=== PATIENT | female | born 1980 | race American Indian/Alaskan Native ===

== ENCOUNTER 2017-11-29 14:29 | Emergency (ER) | payer MEDICAID ==
[2017-11-29 14:41] VITALS: BP 112/51
--- NOTE | 2017-11-29 17:08 | Emergency Department Report ---
ED Fall HPI - General Chief Complaint: Fall Stated Complaint: LEFT SHOULDER INJURY/FALL Time Seen by Provider: 11/29/17 17:05 Source: patient, family Mode of arrival: Ambulatory Limitations: No Limitations - History of Present Illness Initial Comments: Patient reports that she slipped and fall last night at home and she is having left shoulder pain at 10 out of 10 achy and report that it is very hard for her to move her left shoulder. She says she took [id number] pain medication but it's not helping. Pain is worse with movement and touch better rest then but is constant. Denies any numbness or tingling distally. Denies any bruising or swelling and or laceration to left shoulder. She said when she fell she fell on her left shoulder. She is here to be evaluated MD Complaint: fall -: Last night Fall From: standing When Fall Occurred: other (last night) Fall Witnessed: no Loss of Consciousness: none Prolonged Down Time?: yes Symptoms Prior to Fall: none Location - Extremities: Left: Shoulder (pain and difficulty moving left shoulder ) Severity: severe Severity scale (0 -10): 10 Quality: aching Context: tripped/slipped Associated Symptoms: denies: headache, neck pain, numbness, weakness, chest paint, shortness of breath, abdominal pain, hematuria, unable to walk, lightheaded, vertigo, confusion - Related Data Home Medications Medication Instructions Recorded Confirmed Last Taken Phentermine HCl 37.5 mg PO DAILY 10/09/13 10/09/13 Unknown Previous Rx's Medication Instructions Recorded Last Taken Type Famotidine [Pepcid] 40 mg PO DAILY #14 tablet 10/09/13 Unknown Rx hydrOXYzine HCL [Atarax] 25 mg PO Q6HR PRN #20 tablet 10/09/13 Unknown Rx predniSONE [Deltasone] 50 mg PO QDAY #5 tab 10/09/13 Unknown Rx Ibuprofen [Motrin] 600 mg PO Q8H PRN #15 tablet 11/29/17 Unknown Rx Allergies Allergy/AdvReac Type Severity Reaction Status Date / Time No Known Allergies Allergy Unverified 06/19/13 17:20 ED Review of Systems ROS: Stated complaint: LEFT SHOULDER INJURY/FALL Other details as noted in HPI Constitutional: denies: chills, fever Respiratory: denies: cough, shortness of breath, SOB with exertion, SOB at rest , wheezing Cardiovascular: denies: chest pain, palpitations, edema, syncope Gastrointestinal: denies: abdominal pain, nausea, vomiting, diarrhea Genitourinary: denies: urgency, dysuria, frequency, hematuria, discharge Musculoskeletal: joint swelling, arthralgia. denies: back pain, myalgia Skin: denies: rash, lesions Neurological: denies: headache, weakness, numbness, paresthesias, abnormal gait ED Past Medical Hx - Past Medical History Previous Medical History?: Yes Hx Psychiatric Treatment: Yes (depression) - Surgical History Past Surgical History?: Yes Additional Surgical History: c-sections x 3 - Family History Family history: hypertension - Social History Smoking Status: Current Every Day Smoker Substance Use Type: Marijuana, Prescribed - Medications Home Medications: Home Medications Medication Instructions Recorded Confirmed Last Taken Type Famotidine [Pepcid] 40 mg PO DAILY #14 tablet 10/09/13 Unknown Rx Phentermine HCl 37.5 mg PO DAILY 10/09/13 10/09/13 Unknown History hydrOXYzine HCL [Atarax] 25 mg PO Q6HR PRN #20 tablet 10/09/13 Unknown Rx predniSONE [Deltasone] 50 mg PO QDAY #5 tab 10/09/13 Unknown Rx Ibuprofen [Motrin] 600 mg PO Q8H PRN #15 tablet 11/29/17 Unknown Rx ED Physical Exam - General Limitations: No Limitations General appearance: alert, in no apparent distress - Head Head exam: Present: atraumatic, normocephalic, normal inspection, other (normal exam) - Eye Eye exam: Present: normal appearance, PERRL, EOMI Pupils: Present: normal accommodation - ENT ENT exam: Present: normal exam, normal orophraynx, mucous membranes moist - Neck Neck exam: Present: normal inspection, full ROM, other (no C-spine tenderness). Absent: tenderness, lymphadenopathy - Respiratory Respiratory exam: Present: normal lung sounds bilaterally. Absent: respiratory distress, chest wall tenderness - Cardiovascular Cardiovascular Exam: Present: regular rate, normal rhythm, normal heart sounds. Absent: systolic murmur, diastolic murmur - Extremities Exam Extremities exam: Present: normal inspection, tenderness (tenderness to palpate the left shoulder joint), normal capillary refill, joint swelling (left shoulder ), other (no clubbing, cyanosis or edema except mild swelling to shoulder joint. Patient without any laceration, crepitus or effusion to joints. She has limited range of motion to left shoulder otherwise all other extremities are normal. +2 pulses to all extremities and no neurovascular compromise). Absent: full ROM (limited range of motion to left shoulder), pedal edema, calf tenderness - Expanded Upper Extremity Exam Left General: Absent: laceration, abrasion Shoulder Exam: Present: tenderness (left shoulder joint), swelling (left shoulder), tenderness over AC joint. Absent: normal inspection, full ROM, abrasion, laceration, ecchymosis, deformity, crepidus, dislocation, erythema Upper Arm exam: Present: normal inspection, full ROM. Absent: tenderness, swelling, abrasion, laceration, ecchymosis, deformity, crepidus, dislocation, erythema Elbow exam: Present: normal inspection, full ROM. Absent: tenderness, swelling , abrasion, laceration, ecchymosis, deformity, crepidus, dislocation, erythema, effusion, pain w/ pronation/supination, tenderness over radial head Forearm Wrist exam: Present: normal inspection, full ROM. Absent: tenderness, swelling, abrasion, laceration, ecchymosis, deformity, crepidus, dislocation, erythema, tenderness over anatomical snuff box, pain with axial thumb loading Hand Wrist exam: Present: normal inspection, full ROM. Absent: tenderness, swelling, abrasion, laceration, ecchymosis, deformity, crepidus, dislocation, erythema, amputation, nail avulsion, subungual hematoma Neuro motor exam: Present: wrist extension intact, thumb opposition intact, thumb IP flexion intact, thumb adduction intact, fingers 2-5 abduction intact Neurosensory exam: Present: 2-point discrimination, radial nerve intact, ulnar nerve intact, median nerve intact Vascular: Present: normal capillary refill, radial pulse, brachial pulse, ulnar pulse. Absent: vascular compromise, Pallo, pulse deficit radial art, pulse deficit ulnar art, pulse deficit brachial art - Back Exam Back exam: Present: normal inspection, full ROM, other (ambulates without any difficulties). Absent: tenderness, CVA tenderness (R), CVA tenderness (L), muscle spasm, paraspinal tenderness, vertebral tenderness, rash noted - Neurological Exam Neurological exam: Present: alert, oriented X3, normal gait, reflexes normal. Absent: motor sensory deficit - Psychiatric Psychiatric exam: Present: normal affect, normal mood - Skin Skin exam: Present: warm, dry, intact, normal color. Absent: rash ED Course Vital Signs 11/29/17 11/29/17 11/29/17 14:38 17:20 17:22 Temperature 98.8 F Pulse Rate 78 Respiratory 20 20 20 Rate Blood Pressure 112/51 O2 Sat by Pulse 97 Oximetry - Reevaluation(s) Reevaluation #1: 11/29/17 17:16 Patient given Toradol 60 mg IM, Percocet 10/3251 tablets by mouth. Left shoulder sling placed and she says she feels better. I will reevaluate her pain. Patient awaiting in left shoulder x-ray Reevaluation #2: 11/29/17 18:10 Patient reports that her pain is better. Range of motion to the shoulder is better. Slings on. Ice to left shoulder. - Orthopedic Splinting/Casting Injury #1 Side: left Upper Extremity Injury Location: shoulder Upper Extremity Immobilizer: sling/shoulder immobilize ED Medical Decision Making - Radiology Data Radiology results: report reviewed Left shoulder x-ray reveals a negative exam. This was dictated by her radiologist report reviewed by myself Patient: IMANI FREY MR#: [id number] : 1980 Acct:[id number] Age/Sex: 37 / F ADM Date: 11/29/17 Loc: ED Attending Dr: Ordering Physician: JAMIN GOYAL Date of Service: 11/29/17 Procedure(s): XR shoulder 2+V LT Accession Number(s): [id number] cc: JAMIN GOYAL Fluoro Time In Minutes: FINAL REPORT PROCEDURE: Three view left shoulder series TECHNIQUE: Left shoulder radiographs including AP views in internal and external rotation and abduction. CPT 14905 HISTORY: fall with left shoulder pain COMPARISON: No prior studies are available for comparison. FINDINGS: Fracture (s) and/or Dislocation(s): None . Joint space(s): Normal . Soft tissues: Normal . Bone mineralization: Normal . Foreign bodies: None . IMPRESSION: Negative examination Transcribed By: DFN Dictated By: SIS MOHAMUD MD Electronically Authenticated By: SIS MOHAMUD MD Signed Date/Time: 11/29/171816 DD/ 16 TD/TT: 11/29/171816 - Medical Decision Making ED course: This is a 37-year-old female here after falling last night. She says she slipped on a mat accidentally and landed in a left shoulder now she is having pain and swelling with difficulty moving her left upper extremity. She is here to be evaluated. She says she took [id number] medication without any help . I saw and examined patient and found to have limited range of motion to left upper extremity with tenderness to palpate to before AC joint and GHJ. She has good ulnar and radial pulses bilateral. X-ray of left shoulder dictated by radiologist and report reviewed by myself. Patient with negative findings and this was communicated to patient. Her pain is controlled and she says she feels better. She voiced understanding of x-ray report. A/P 1. Arthralgia left shoulder-patient given Toradol 60 mg IM, Percocet 5/325 2 tablets by mouth and shoulder sling placed. Will send home on Motrin. 2: Accidental fall-fall prevention education 3: Contusion left shoulder-Rice therapy. Patient education the medication, Rice therapy, diagnosis, treatment plan and need to follow-up with orthopedic doctor and she voiced understanding. Patient is stable, vital signs are stable and afebrile. Her pain is better and she says she feels better. Patient discharged home to follow-up with her primary care and also orthopedic doctor in 3-5 days. I discussed with her that if her condition worsens to return to the hospital. She was understanding discharged home with her family with prescription for Motrin. - Differential Diagnosis shoulder fracture, shoulder contusion, dislocation, musculoskeletal pain Critical care attestation.: If time is entered above; I have spent that time in minutes in the direct care of this critically ill patient, excluding procedure time. ED Disposition Clinical Impression: Arthralgia of left shoulder region Contusion of left shoulder Qualifiers: Encounter type: initial encounter Qualified Code(s): S40.012A - Contusion of left shoulder, initial encounter Accidental fall Qualifiers: Encounter type: initial encounter Qualified Code(s): W19.XXXA - Unspecified fall, initial encounter Disposition: DC-01 TO HOME OR SELFCARE Is pt being admited?: No Does the pt Need Aspirin: No Condition: Stable Instructions: Arthralgia (ED), Contusion in Adults (ED), RICE Therapy (ED), Fall Prevention (ED) Additional Instructions: Please see discharge instruction on fall prevention, contusion and Rice therapy Keep sling on for at least 72 hours he can take off when going to bed. Take Motrin as prescribed for pain Follow-up with orthopedic doctor in 3-5 days If your condition worsens, return to the emergency room Prescriptions: Ibuprofen [Motrin] 600 mg PO Q8H PRN #15 tablet PRN Reason: Pain Referrals: EVANGELINA AHUMADA MD [Staff Physician] - 2-3 Days [facility] [Outside] - 2-3 Days PRIMARY CAREMD [Primary Care Provider] - 2-3 Days Forms: Work/School Release Form(ED)
[2017-11-29] MEDS ORDERED: PERCOCET 5/325 PO ONE (17:09)
[2017-11-29] MEDS ORDERED: TORADOL IM ONE (17:09)
--- NOTE | 2017-11-29 18:21 | XRay Report ---
FINAL REPORT PROCEDURE: Three view left shoulder series TECHNIQUE: Left shoulder radiographs including AP views in internal and external rotation and abduction. CPT 15919 HISTORY: fall with left shoulder pain COMPARISON: No prior studies are available for comparison. FINDINGS: Fracture (s) and/or Dislocation(s): None . Joint space(s): Normal . Soft tissues: Normal . Bone mineralization: Normal . Foreign bodies: None . IMPRESSION: Negative examination
== END 2017-11-29 18:56 | disposition home or self-care (01) ==
LOC: ED 14:29
DX: S40.012A Contusion of left shoulder, initial encounter (principal); F32.9 Major depressive disorder, single episode, unspecified; F17.200 Nicotine dependence, unspecified, uncomplicated; F12.90 Cannabis use, unspecified, uncomplicated; W18.39XA Other fall on same level, initial encounter; Y93.89 Activity, other specified; Y99.8 Other external cause status; Y92.89 Other specified places as the place of occurrence of the external cause
CPT/HCPCS: 73030; 96372; 99284; J1885

== ENCOUNTER 2018-08-16 20:44 | Emergency (ER) | payer MEDICAID ==
[2018-08-16 21:10] VITALS: BP 127/64
[2018-08-16] MEDS ORDERED: TYLENOL PO ONE (21:22)
[2018-08-16 22:38] LABS: Bilirubin,Urine NEG (Negative); Blood,Urine NEG (Negative); Color,Urine Yellow (Yellow); Mucus,Urine FEW /HPF; Protein,Urine <15 mg/dL mg/dL (Negative); WBC,Urine < 1.0 /HPF (0.0-6.0)
[2018-08-16 22:38] LABS: Hematocrit 35.5 % (30.3-42.9); Hemoglobin 11.9 gm/dl (10.1-14.3); Mean Corpuscular HGB Conc 34 % (30-34); Mean Corpuscular Volume 89 fl (79-97); Platelet Count 314 K/mm3 (140-440); Red Blood Count 3.98 M/mm3 (3.65-5.03); Red Cell Distribution Width 13.4 % (13.2-15.2)
[2018-08-16 22:53] LABS: BUN/Creatinine Ratio 20; Blood Urea Nitrogen 12 mg/dL (7-17); Calcium 9.1 mg/dL (8.4-10.2); Hemolysis Index 5
[2018-08-16] MEDS ORDERED: ULTRAM PO ONE (23:55)
--- NOTE | 2018-08-17 | Emergency Department Report ---
ED General Adult HPI - General Chief complaint: Abdominal Pain Stated complaint: LEFT SIDE FLANK PAIN/CHEST PAIN Time Seen by Provider: 08/16/18 23:52 Source: patient Mode of arrival: Ambulatory Limitations: No Limitations - History of Present Illness Initial comments: Patient is alert female who presents for a right side and not left sided right- sided flank pain with urinary frequency times the past week patient does not ureteral stones is no fevers no chills no hematuria no fever chills patient received 4 without difficulty at this time there's no shortness of breath no nausea vomiting symptoms are exacerbated with swallowing however there is no vaginal discharge 2 weeks ago similarly by rest, pt denies fall injury or trauma there is no chest pain Onset/Timin -: week(s) Location: back (right flank ) Severity scale (0 -10): 8 Quality: aching Consistency: intermittent Improves with: rest Worsens with: other (voiding) Associated Symptoms: denies: fever/chills, nausea/vomiting Treatments Prior to Arrival: none - Related Data Home Medications Medication Instructions Recorded Confirmed Last Taken Phentermine HCl 37.5 mg PO DAILY 10/09/13 10/09/13 Unknown Previous Rx's Medication Instructions Recorded Last Taken Type Famotidine [Pepcid] 40 mg PO DAILY #14 tablet 10/09/13 Unknown Rx hydrOXYzine HCL [Atarax] 25 mg PO Q6HR PRN #20 tablet 10/09/13 Unknown Rx predniSONE [Deltasone] 50 mg PO QDAY #5 tab 10/09/13 Unknown Rx Ibuprofen [Motrin] 600 mg PO Q8H PRN #15 tablet 11/29/17 Unknown Rx Ibuprofen 800 mg PO TID PRN #30 tablet 08/17/18 Unknown Rx Allergies Allergy/AdvReac Type Severity Reaction Status Date / Time No Known Allergies Allergy Unverified 06/19/13 17:20 ED Review of Systems ROS: Stated complaint: LEFT SIDE FLANK PAIN/CHEST PAIN Other details as noted in HPI Constitutional: denies: chills, fever Eyes: denies: eye pain, eye discharge, vision change ENT: denies: ear pain, throat pain Respiratory: denies: cough, shortness of breath, wheezing Cardiovascular: denies: chest pain, palpitations Endocrine: no symptoms reported Gastrointestinal: denies: abdominal pain, nausea, vomiting, diarrhea, constipation, hematemesis, hematochezia Genitourinary: frequency. denies: urgency, dysuria, discharge, abnormal menses, dyspareunia Musculoskeletal: back pain. denies: arthralgia, myalgia Skin: denies: rash, lesions Neurological: denies: headache, weakness, paresthesias Psychiatric: denies: anxiety, depression Hematological/Lymphatic: denies: easy bleeding, easy bruising ED Past Medical Hx - Past Medical History Hx Psychiatric Treatment: Yes (depression) - Surgical History Additional Surgical History: c-sections x 3 - Social History Smoking Status: Current Every Day Smoker Substance Use Type: None - Medications Home Medications: Home Medications Medication Instructions Recorded Confirmed Last Taken Type Famotidine [Pepcid] 40 mg PO DAILY #14 tablet 10/09/13 Unknown Rx Phentermine HCl 37.5 mg PO DAILY 10/09/13 10/09/13 Unknown History hydrOXYzine HCL [Atarax] 25 mg PO Q6HR PRN #20 tablet 10/09/13 Unknown Rx predniSONE [Deltasone] 50 mg PO QDAY #5 tab 10/09/13 Unknown Rx Ibuprofen [Motrin] 600 mg PO Q8H PRN #15 tablet 11/29/17 Unknown Rx Ibuprofen 800 mg PO TID PRN #30 tablet 08/17/18 Unknown Rx ED Physical Exam - General Limitations: No Limitations General appearance: alert, in no apparent distress - Head Head exam: Present: atraumatic, normocephalic - Eye Eye exam: Present: normal appearance, PERRL, EOMI Pupils: Present: normal accommodation - ENT ENT exam: Present: mucous membranes moist - Neck Neck exam: Present: normal inspection, full ROM. Absent: tenderness, meningismus, lymphadenopathy, thyromegaly - Respiratory Respiratory exam: Present: normal lung sounds bilaterally. Absent: respiratory distress, wheezes, stridor, chest wall tenderness - Cardiovascular Cardiovascular Exam: Present: regular rate, normal rhythm, normal heart sounds. Absent: systolic murmur, diastolic murmur, rubs, gallop - GI/Abdominal GI/Abdominal exam: Present: soft, normal bowel sounds. Absent: tenderness, guarding, rebound, bruit, hernia - Rectal Rectal exam: Present: deferred - Extremities Exam Extremities exam: Present: normal inspection, full ROM, normal capillary refill. Absent: tenderness, pedal edema, joint swelling, calf tenderness - Back Exam Back exam: Present: normal inspection, full ROM, tenderness, CVA tenderness (R). Absent: CVA tenderness (L), muscle spasm, paraspinal tenderness, vertebral tenderness, rash noted - Expanded Back Exam Expanded Back exam: Absent: saddle anesthesia Back exam: Negative Straight Leg Raising: Left, Right - Neurological Exam Neurological exam: Present: alert, oriented X3, CN II-XII intact, normal gait, reflexes normal - Psychiatric Psychiatric exam: Present: normal affect, normal mood - Skin Skin exam: Present: warm, dry, intact, normal color. Absent: rash ED Course Vital Signs 08/16/18 20:51 Temperature 97.9 F Pulse Rate 63 Respiratory 18 Rate Blood Pressure 127/64 O2 Sat by Pulse 100 Oximetry ED Medical Decision Making - Lab Data Result diagrams: 08/16/18 21:58 08/16/18 21:58 Labs 08/16/18 08/16/18 08/16/18 21:35 21:58 21:58 WBC 10.0 RBC 3.98 Hgb 11.9 Hct 35.5 MCV 89 MCH 30 MCHC 34 RDW 13.4 Plt Count 314 Sodium 141 Potassium 4.2 Chloride 103.2 Carbon Dioxide 26 Anion Gap 16 BUN 12 Creatinine 0.6 L Estimated GFR > 60 BUN/Creatinine Ratio 20 Glucose 108 H Calcium 9.1 HCG, Qual Urine Color Yellow Urine Turbidity Clear Urine pH 6.0 Ur Specific [place] 1.024 Urine Protein <15 mg/dl Urine Glucose (UA) Neg Urine Ketones Neg Urine Blood Neg Urine Nitrite Neg Urine Bilirubin Neg Urine Urobilinogen 4.0 Ur Leukocyte Esterase Neg Urine WBC (Auto) < 1.0 Urine RBC (Auto) 2.0 U Epithel Cells (Auto) 2.0 Urine Mucus Few 08/16/18 21:58 WBC RBC Hgb Hct MCV MCH MCHC RDW Plt Count Sodium Potassium Chloride Carbon Dioxide Anion Gap BUN Creatinine Estimated GFR BUN/Creatinine Ratio Glucose Calcium HCG, Qual Negative Urine Color Urine Turbidity Urine pH Ur Specific [place] Urine Protein Urine Glucose (UA) Urine Ketones Urine Blood Urine Nitrite Urine Bilirubin Urine Urobilinogen Ur Leukocyte Esterase Urine WBC (Auto) Urine RBC (Auto) U Epithel Cells (Auto) Urine Mucus - Medical Decision Making UA normal , cmp: normal, cbc, Normal exam milld right cva tenderness to deep palpation plan. Nsaids follow up with pcp in 2-3 days return to ed if symptoms worsen, pt verbalized agreement and understanding of discharge plan. Critical care attestation.: If time is entered above; I have spent that time in minutes in the direct care of this critically ill patient, excluding procedure time. ED Disposition Clinical Impression: Urinary frequency, Flank pain Disposition: PAT REG,NO TRIAGE Is pt being admited?: No Does the pt Need Aspirin: No Condition: Stable Instructions: Abdominal Pain (ED), Dysuria (ED), Flank Pain (ED) Prescriptions: Ibuprofen 800 mg PO TID PRN #30 tablet PRN Reason: pain Referrals: PRIMARY CARE, [Primary Care Provider] - 3-5 Days [facility] [Outside] - 3-5 Days Forms: Work/School Release Form(ED) Time of Disposition: 00:07
[2018-08-17 02:58] LABS: Basophils % (Manual) 0 % (0.0-1.8); Total Cells Counted 100
[2018-08-17 03:00] LABS: Anisocytosis 1+; Platelet Estimate Consistent w Auto
== END 2018-08-17 00:28 | disposition left against medical advice (07) ==
LOC: ED 20:44
DX: R35.0 Frequency of micturition (principal); R10.9 Unspecified abdominal pain; F32.9 Major depressive disorder, single episode, unspecified; F17.200 Nicotine dependence, unspecified, uncomplicated; Z79.899 Other long term (current) drug therapy
CPT/HCPCS: 36415; 80048; 81001; 84703; 85007; 85025; 99283

== ENCOUNTER 2018-10-21 11:20 | Outpatient (CLI) | payer MEDICAID ==
[2018-10-21 12:25] LABS: Free T4 (Free Thyroxine) 1.25 ng/dL (0.76-1.46)
== END 2018-10-21 11:21 | disposition home or self-care (01) ==
LOC: LAB 11:20
PROVIDERS: ATTEND Otolaryngology
DX: E06.9 Thyroiditis, unspecified (principal)
CPT/HCPCS: 36415; 84436; 84439; 84443; 84479

== ENCOUNTER 2021-03-15 22:03 | Emergency (ER) | payer MEDICAID, OTHER ==
[2021-03-16] MEDS ORDERED: SODIUM CHLORIDE 0.9% 1000 ML 1,000 ML IV ONE (00:10)
--- NOTE | 2021-03-16 00:11 | Emergency Department Report ---
ED General Adult HPI - General Chief complaint: Pain General Stated complaint: FATIGUE AND BODYACHE PUI?: No Time Seen by Provider: 03/16/21 00:09 Source: patient Mode of arrival: Ambulatory Limitations: No Limitations - History of Present Illness Initial comments: 41-year-old female with a history of iron deficiency anemia and depression presents to the ER today with complaints of intermittent diaphoretic episodes, generalized body aches and generalized fatigue, headache and foggy memory. She states that she has been having these symptoms since she was diagnosed with Covid January 05, 2021. She states that she did get the Covid Pfizer vaccine initially in August, both doses and she did get a booster on February 28, 2021. She states that she did have a negative test before getting the booster. She denies any URI symptoms, cough, shortness of breath or chest pain. She denies any abdominal pain, vomiting or diarrhea or any symptoms. She denies any fever or chills. She states that she has been trying to get an appointment with her PCP, but they "refused" to see her. She does admit to tobacco use. She denies any illicit drug use or alcohol abuse. MD Complaint: Generalized body aches, generalized headaches, sweats -: Gradual - Related Data Home Medications Medication Instructions Recorded Confirmed Last Taken Phentermine HCl 37.5 mg PO DAILY 10/09/13 10/09/13 Unknown Previous Rx's Medication Instructions Recorded Last Taken Type Famotidine [Pepcid] 40 mg PO DAILY #14 tablet 10/09/13 Unknown Rx Fluconazole [Diflucan TAB] 200 mg PO QDAY #2 tablet 03/16/21 Unknown Rx Ibuprofen [Motrin] 600 mg PO Q8H PRN #30 tablet 03/16/21 Unknown Rx cephALEXin [Keflex] 500 mg PO Q6HR #40 capsule 03/16/21 Unknown Rx methOCARBAMOL [Robaxin TAB] 750 mg PO Q8H PRN #30 tablet 03/16/21 Unknown Rx Allergies Allergy/AdvReac Type Severity Reaction Status Date / Time No Known Allergies Allergy Verified 03/15/21 22:52 ED Review of Systems ROS: Stated complaint: FATIGUE AND BODYACHE Other details as noted in HPI Comment: All other systems reviewed and negative Constitutional: denies: chills, fever Eyes: denies: eye pain, eye discharge, vision change ENT: denies: ear pain, throat pain, dental pain, hearing loss, epistaxis, congestion Respiratory: denies: cough, orthopnea, shortness of breath, SOB with exertion, SOB at rest, wheezing Cardiovascular: denies: chest pain, palpitations, dyspnea on exertion, edema, syncope, paroxysmal nocturnal dyspnea Endocrine: no symptoms reported Gastrointestinal: denies: abdominal pain, nausea, diarrhea, constipation, hematemesis, melena, hematochezia Genitourinary: denies: urgency, dysuria, frequency, hematuria, discharge, abnormal menses, dyspareunia Musculoskeletal: myalgia. denies: back pain, joint swelling, arthralgia Skin: denies: rash, lesions, change in color, change in hair/nails, pruritus Neurological: headache, weakness, other ("foggy memory") Psychiatric: denies: anxiety, depression, auditory hallucinations, visual halluc inations, homicidal thoughts, suicidal thoughts Hematological/Lymphatic: denies: easy bleeding, easy bruising, swollen glands ED Past Medical Hx - Past Medical History Previous Medical History?: No Hx Psychiatric Treatment: Yes (depression) - Surgical History Past Surgical History?: No Additional Surgical History: c-sections x 3 - Social History Smoking Status: Current Every Day Smoker Substance Use Type: None - Medications Home Medications: Home Medications Medication Instructions Recorded Confirmed Last Taken Type Famotidine [Pepcid] 40 mg PO DAILY #14 tablet 10/09/13 Unknown Rx Phentermine HCl 37.5 mg PO DAILY 10/09/13 10/09/13 Unknown History Fluconazole [Diflucan TAB] 200 mg PO QDAY #2 tablet 03/16/21 Unknown Rx Ibuprofen [Motrin] 600 mg PO Q8H PRN #30 tablet 03/16/21 Unknown Rx cephALEXin [Keflex] 500 mg PO Q6HR #40 capsule 03/16/21 Unknown Rx methOCARBAMOL [Robaxin TAB] 750 mg PO Q8H PRN #30 tablet 03/16/21 Unknown Rx ED Physical Exam - General Limitations: No Limitations General appearance: alert, in no apparent distress - Head Head exam: Present: atraumatic, normocephalic, normal inspection - Eye Eye exam: Present: normal appearance, PERRL, EOMI Pupils: Present: normal accommodation - ENT ENT exam: Present: normal exam, mucous membranes dry, TM's normal bilaterally - Neck Neck exam: Present: normal inspection, full ROM. Absent: meningismus - Respiratory Respiratory exam: Present: normal lung sounds bilaterally. Absent: respiratory distress, wheezes, rales, rhonchi - Cardiovascular Cardiovascular Exam: Present: regular rate, normal rhythm, normal heart sounds - GI/Abdominal GI/Abdominal exam: Present: soft. Absent: distended, tenderness, guarding, rebound - Neurological Exam Neurological exam: Present: alert, oriented X3, CN II-XII intact, normal gait - Psychiatric Psychiatric exam: Present: normal affect, depressed (tearful in room ). Absent: homicidal ideation, suicidal ideation - Skin Skin exam: Present: intact ED Course Vital Signs 03/16/21 03/16/21 00:58 01:13 Temperature 98.5 F Pulse Rate 61 Respiratory 20 Rate Blood Pressure 113/58 O2 Sat by Pulse 97 Oximetry ED Medical Decision Making - Lab Data Result diagrams: 03/16/21 00:53 03/16/21 00:53 - Radiology Data Radiology results: report reviewed Patient: IMANI FREY MR# : [id number] : 1980 Acct:[id number] Age/Sex: 41 / F ADM Date: 03/15/21 Loc: ED Attending Dr: Ordering Physician: DONNA MENON Date of Service: 03/16/21 Procedure(s): CT head/brain wo con Accession Number(s): [id number] cc: DONNA MENON CT HEAD WITHOUT CONTRAST INDICATION / CLINICAL INFORMATION: Foggy memory. TECHNIQUE: All CT scans at this location are performed using CT dose reduction for ALARA by means of automated exposure control. COMPARISON: None available. FINDINGS: HEMORRHAGE: None. EXTRA-AXIAL SPACES: Normal in size and morphology for the patient's age. VENTRICULAR SYSTEM: Normal in size and morphology for the patient's age. CEREBRAL PARENCHYMA: No significant abnormality. No acute territorial infarct. MIDLINE SHIFT OR HERNIATION: None. CEREBELLUM / BRAINSTEM: No significant abnormality. ORBITS: Normal as visualized. SOFT TISSUES of HEAD: No significant abnormality. CALVARIUM: No significant abnormality. PARANASAL SINUSES / MASTOID AIR CELLS: Mild right posterior ethmoid sinus disease with opacification of one ethmoid air cell image 3 ADDITIONAL FINDINGS: None. IMPRESSION: 1. No acute intracranial abnormality. 2. Mild right ethmoid sinus disease Signer Name: Martín Lopez MD Signed: 03/16/2021 1:03 AM Workstation Name: [id number] Transcribed By: TL Dictated By: Martín Lopez MD Electronically Authenticated By: Martín Lopez MD Signed Date/Time: 03/16/21102 DD/ 0 TD/TT: - Medical Decision Making All labs reviewed, urinalysis suggest UTI but otherwise unremarkable. CT head shows nothing acute. Patient currently resting comfortably in the chair. She does not currently appear to be in any significant distress. She is currently awake alert and oriented x3 with a GCS of 15. She is neurologically intact and had a normal gait. Discussed all lab and imaging results with patient. Informed her of her UTI and that we will get her started on antibiotics. Her UTI could cause some of her symptoms but I did recommend follow-up with her PCP and SECURITY AND COMPLIANCE ANALYST for additional outpatient testing (B12, vitamin D, hormonal testing if needed). Patient expressed understanding of instructions and agree with plan. Patient stable at time of discharge. - Differential Diagnosis Infection, metabolic abnormality, intracranial abnormality, Critical care attestation.: If time is entered above; I have spent that time in minutes in the direct care of this critically ill patient, excluding procedure time. ED Disposition Clinical Impression: UTI (urinary tract infection), Yeast vaginitis, Myalgia, Fatigue Disposition: 01 HOME / SELF CARE / HOMELESS Is pt being admited?: No Does the pt Need Aspirin: No Condition: Stable Instructions: Fatigue, Vaginal Yeast Infection, Adult, Urinary Tract Infection, Adult, [id number] Additional Instructions: I recommend that you take the Keflex as prescribed to help with your UTI. Take a Diflucan at the same time he started Keflex and then after you finish the Kef bipin for yeast infection. Increase your intake. Take the ibuprofen and the muscle relaxer to help with your body aches. I do recommend follow-up with your PCP and your SECURITY AND COMPLIANCE ANALYST. Return to the ER if your symptoms changes or worsens in any way. Prescriptions: Fluconazole [Diflucan TAB] 200 mg PO QDAY #2 tablet cephALEXin [Keflex] 500 mg PO Q6HR #40 capsule Ibuprofen [Motrin] 600 mg PO Q8H PRN #30 tablet PRN Reason: Pain methOCARBAMOL [Robaxin TAB] 750 mg PO Q8H PRN #30 tablet PRN Reason: Muscle Spasm Referrals: PRIMARY CARE,MD [Primary Care Provider] - 3-5 Days Forms: Work/School Release Form(ED) Time of Disposition: 01:59 Print Language: ZAMBIAN
[2021-03-16 00:45] LABS: Bacteria,Urine 1+ /HPF (Negative); Bilirubin,Urine NEG (Negative); Blood,Urine NEG (Negative); Color,Urine Yellow (Yellow); Mucus,Urine 3+ /HPF
[2021-03-16 00:47] LABS: HCG Qualitative,Urine Negative (Negative)
[2021-03-16] MEDS ORDERED: IBUPROFEN 600 MG TAB PO ONE (00:54)
[2021-03-16] MEDS ORDERED: ACETAMINOPHEN 325 MG TAB PO ONE (00:54)
[2021-03-16 00:59] VITALS: BP 113/58
--- NOTE | 2021-03-16 01:08 | Cat Scan Report ---
CT HEAD WITHOUT CONTRAST INDICATION / CLINICAL INFORMATION: Foggy memory. TECHNIQUE: All CT scans at this location are performed using CT dose reduction for ALARA by means of automated e xposure control. COMPARISON: None available. FINDINGS: HEMORRHAGE: None. EXTRA-AXIAL SPACES: Normal in size and morphology for the patient's age. VENTRICULAR SYSTEM: Normal in size and morphology for the patient's age. CEREBRAL PARENCHYMA: No significant abnormality. No acute territorial infarct. MIDLINE SHIFT OR HERNIATION: None. CEREBELLUM / BRAINSTEM: No significant abnormality. ORBITS: Normal as visualized. SOFT TISSUES of HEAD: No significant abnormality. CALVARIUM: No significant abnormality. PARANASAL SINUSES / MASTOID AIR CELLS: Mild right posterior ethmoid sinus disease with opacification of one ethmoid air cell image 3 ADDITIONAL FINDINGS: None. IMPRESSION: 1. No acute intracranial abnormality. 2. Mild right ethmoid sinus disease Signer Name: Martín Lopez MD Signed: 03/16/2021 1:03 AM Workstation Name: [id number]
[2021-03-16 01:11] LABS: Basophils # (Auto) 0.2 K/mm3 (0.0-0.1); Basophils % (Auto) 1.4 % (0.0-1.8); Eosinophils # (Auto) 0.3 K/mm3 (0.0-0.4); Eosinophils % (Auto) 2.3 % (0.0-4.3); Hematocrit 33.3 % (30.3-42.9); Hemoglobin 11.4 gm/dl (10.1-14.3); Lymphocytes # (Auto) 3.8 K/mm3 (1.2-5.4); Lymphocytes % (Auto) 31.9 % (13.4-35.0); Mean Corpuscular HGB Conc 34 % (30-34); Mean Corpuscular Volume 88 fl (79-97); Monocytes # (Auto) 1.1 K/mm3 (0.0-0.8); Platelet Count 352 K/mm3 (140-440); Red Cell Distribution Width 14.6 % (13.2-15.2)
[2021-03-16 01:34] LABS: Alanine Aminotransferase 10 units/L (7-56); Albumin 4.2 g/dL (3.9-5); BUN/Creatinine Ratio 18; Blood Urea Nitrogen 14 mg/dL (7-17); Calcium 9.5 mg/dL (8.4-10.2); Hemolysis Index 0
== END 2021-03-16 03:30 | disposition home or self-care (01) ==
LOC: ED 22:03
DX: N39.0 Urinary tract infection, site not specified (principal); B37.3 Candidiasis of vulva and vagina; M79.10 Myalgia, unspecified site; R53.83 Other fatigue; F32.9 Major depressive disorder, single episode, unspecified; Z98.890 Other specified postprocedural states; F17.200 Nicotine dependence, unspecified, uncomplicated
CPT/HCPCS: 36415; 70450; 80053; 81001; 81025; 83735; 85025; 87086; 96360; 99284; J7030; 96361